=== PATIENT | male | born 1990 | race Asian ===

== ENCOUNTER 2017-07-13 08:05 | Emergency (ER) | payer OTHER ==
--- NOTE | 2017-07-13 09:26 | UC ---
Respiratory Complaint HPI - HPI Summary HPI Summary: 27 yo gentleman c/o sore throat, feeling unwell since yesterday. Dx'd with strep 07/02/17 - took 10 days abx, completed Wednesday, sx returned yesterday ( Wednesday). No rash. 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 No GI issues. No issues reported. - History of Current Complaint Chief Complaint: UCRespiratory Stated Complaint: SORE THROAT, CONGUESTION Time Seen by Provider: 07/13/17 09:24 Hx Obtained From: Patient - Allergies/Home Medications Allergies/Adverse Reactions: Allergies Allergy/AdvReac Type Severity Reaction Status Date / Time No Known Allergies Allergy Verified 07/02/17 09:24 PMH/Surg Hx/FS Hx/Imm Hx Previously Healthy: Yes - Surgical History Surgical History: None - Family History Known Family History: Negative: Hypertension - Social History Alcohol Use: None Substance Use Type: None Smoking Status (MU): Never Smoked Tobacco Review of Systems Constitutional: Fatigue Skin: Negative Eyes: Negative ENT: Sore Throat Respiratory: Cough - mild Cardiovascular: Negative Gastrointestinal: Negative Genitourinary: Negative Motor: Negative Neurovascular: Negative Musculoskeletal: Negative Neurological: Negative Psychological: Negative Is Patient Immunocompromised?: No All Other Systems Reviewed And Are Negative: Yes Physical Exam Triage Information Reviewed: Yes Appearance: Well-Nourished - sitting up. conversing easily and appropriately. NAD. Vital Signs: Initial Vital Signs Temp 98.5 F 07/13/17 08:13 Pulse 90 07/13/17 08:13 Resp 18 07/13/17 08:13 BP 128/73 07/13/17 08:13 Pulse Ox 99 07/13/17 08:13 Vital Signs Reviewed: Yes Eye Exam: Normal - grossly normal ENT: Positive: Pharyngeal erythema, TM dull, Tonsillar swelling, Tonsillar exudate Neck exam: Normal Neck: Positive: Supple - no meningismus, Nontender - + left submand node Respiratory Exam: Normal Respiratory: Positive: Chest non-tender, Lungs clear, Normal breath sounds, No respiratory distress Cardiovascular Exam: Normal Cardiovascular: Positive: RRR, No Murmur, Pulses Normal, Brisk Capillary Refill Abdominal Exam: Normal Abdomen Description: Positive: Nontender Musculoskeletal Exam: Normal Neurological Exam: Normal Psychological Exam: Normal Skin Exam: Normal UC Diagnostic Evaluation - Laboratory O2 Sat by Pulse Oximetry: 99 Respiratory Course/Dx - Course Course Of Treatment: No new problems in CCC. RST negative. Mononucleosis / EBV - both sent. D/w pt. Questions posed answered to the best of my ability. - Differential Dx/Diagnosis Provider Diagnoses: Tonsillitis. URI Discharge - Discharge Plan Condition: Stable Disposition: HOME Prescriptions: Azithromyxin CHANTELLE (NF) [Z-Chantelle (Zithromax) 250 mg tabs #6] 2 tab PO .TODAY, THEN 1 DAILY #6 tab Patient Education Materials: Tonsillitis (ED) Referrals: [facility] [Outside] No Primary Care Phys,NOPCP [Primary Care Provider] - Additional Instructions: Follow up with a primary care physician as soon as you are able. Seek medical attention for worse or new problems in the meantime. Strep test negative today. Monospot / EBV blood test today. Call tomorrow to check on results.
[2017-07-13 10:05] VITALS: BP 133/83
[2017-07-13 12:55] LABS: Mono Internal Control QC Line Present
== END 2017-07-13 10:26 | disposition home or self-care (01) ==
LOC: UCEAST 08:05
DX: J03.90 Acute tonsillitis, unspecified (principal); J06.9 Acute upper respiratory infection, unspecified
CPT/HCPCS: 36415; 86308; 86663; 87651; 99212; G0463